=== PATIENT | female | born 1990 | race African-American/Black ===

== ENCOUNTER 2017-02-24 17:09 | Emergency (ER) | payer MEDICAID ==
[~2017-02-24] VITALS: Ht 152.4 cm; Wt 47.6 kg
[2017-02-24 18:16] LABS: Basophils # (auto) 0 uL; Basophils % (auto) 0.7 % (0.0-2.0); Eosinophils # (auto) 0.3 uL; Eosinophils % (auto) 5.7 % (0.0-7.0); Hematocrit 35.9 % (36.0-46.0); Hemoglobin 12.2 g/dL (12.2-16.2); Lymphocytes # (auto) 2.4 uL; Mean Corpuscular Hemoglobin 28.6 pg (28.0-32.0); Mean Corpuscular Hgb Conc. 34.1 g/dL (32.0-36.0); Mean Corpuscular Volume 83.9 fL (80.0-100.0); Mean Platelet Volume 8.6 fL (7.4-10.4); Monocytes # (auto) 0.3 uL; Monocytes % (auto) 5.5 % (0.0-12.0); Neutrophils # (auto) 2.6 uL; Neutrophils % (auto) 46.1 % (37.0-80.0); Platelet Count (auto) 355 10^3/uL (140-450); White Blood Cell 5.6 10^3/uL (4.4-10.8)
[2017-02-24 18:44] LABS: Urine Bilirubin Negative (Negative); Urine Color Yellow (Yellow); Urine Glucose Normal (Normal); Urine Ketone Negative (Negative); Urine Mucus FEW (None Seen); Urine Nitrite Negative (Negative); Urine RBC <1 /hpf (0 - 4); Urine Squamous Epithelial Cell FEW /hpf (<5); Urine Urobilinogen Normal (Negative); Urine pH 5.5 (5.0-8.0)
[2017-02-24 18:45] LABS: Urine Blood 1+ /uL (Negative)
[2017-02-24 18:49] LABS: Calcium 8.8 mg/dL (8.5-10.1); Potassium 3.7 mmol/L (3.5-5.1)
[2017-02-24 18:53] LABS: Albumin 4.1 g/dL (3.4-5.0); BUN/Creatinine Ratio 17.9
[2017-02-24 18:55] LABS: Bilirubin, Total 0.5 mg/dL (0.2-1.0); Total Protein 8.9 g/dL (6.4-8.2)
[2017-02-24] MEDS ORDERED: ACETAMINOPHEN 325 MG TAB PO ONE (23:30)
[2017-02-25 01:59] VITALS: BP 99/58
== END 2017-02-25 02:01 | disposition home or self-care (01) ==
LOC: ER 17:18
DX: K59.01 Slow transit constipation (principal); K92.1 Melena; J45.909 Unspecified asthma, uncomplicated; Z88.1 Allergy status to other antibiotic agents; Z91.018 Allergy to other foods
CPT/HCPCS: 36415; 74000; 76856; 80053; 81001; 84702; 85025